=== PATIENT | female | born 1975 | race Caucasian/White ===

== ENCOUNTER 2018-11-01 20:25 | Emergency (ER) | payer SELFPAY ==
[2018-11-01 21:12] LABS: Basophils # (Auto) 0.1 K/mm3 (0.0-0.1); Basophils % (Auto) 1.1 % (0.0-1.8); Eosinophils # (Auto) 0.3 K/mm3 (0.0-0.4); Eosinophils % (Auto) 3.8 % (0.0-4.3); Hematocrit 40.2 % (30.3-42.9); Hemoglobin 13.4 gm/dl (10.1-14.3); Lymphocytes # (Auto) 2.8 K/mm3 (1.2-5.4); Lymphocytes % (Auto) 33.3 % (13.4-35.0); Mean Corpuscular HGB Conc 33 % (30-34); Mean Corpuscular Volume 92 fl (79-97); Monocytes # (Auto) 0.7 K/mm3 (0.0-0.8); Monocytes % (Auto) 7.9 % (0.0-7.3); Platelet Count 270 K/mm3 (140-440); Red Blood Count 4.39 M/mm3 (3.65-5.03); Red Cell Distribution Width 13.2 % (13.2-15.2)
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
[2018-11-01 21:43] LABS: BUN/Creatinine Ratio 15; Blood Urea Nitrogen 9 mg/dL (7-17); Calcium 8.9 mg/dL (8.4-10.2); Hemolysis Index 5
[2018-11-01 23:06] LABS: Bilirubin,Urine NEG (Negative); Blood,Urine SM (Negative); Color,Urine Yellow (Yellow); Protein,Urine <15 mg/dL mg/dL (Negative); Urobilinogen,Urine < 2.0 mg/dL (<2.0)
[2018-11-01 23:09] LABS: Amphetamine Screen,Urine PRESUMPTIVE NEGATIVE; Benzodiazepines Screen,Urine PRESUMPTIVE NEGATIVE; Cannabinoid Screen,Urine PRESUMPTIVE NEGATIVE; Cocaine Screen,Urine PRESUMPTIVE NEGATIVE; Methadone Screen,Urine PRESUMPTIVE NEGATIVE; Opiate Screen,Urine PRESUMPTIVE NEGATIVE
[2018-11-02] MEDS ORDERED: TYLENOL ONE (05:35)
[2018-11-02] MEDS ORDERED: TYLENOL PO ONE (05:35)
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
[2018-11-02] MEDS: GEODON PO SCH ×2 (12:34→21:45)
[2018-11-02] MEDS ORDERED: BENADRYL PO SCH (22:00)
[2018-11-03] MEDS: GEODON PO SCH (10:00)
--- NOTE | 2018-11-03 10:55 | Progress Note ---
Subjective - Reason for Consult Consult date: 11/03/18 Reason for consult: Psychiatry Follow-up - Chief Complaint Chief complaint: "I am okay" 43 y.o. female who presented to the ER for bizarre behavior. Today the patient is calm during the assessment. She was asked several questions about her actions prior to arrival to ER, she replied, 'I didn't do anything." She would not confirm or deny AH's during her crisis. She did state hearing voices intermit tently for several days before her arrival to the ER. She denies SI/HI's and VH's. She denies any side effects of her medication. " Mental Status Exam - Vital signs Last Vital Signs Temp 98.6 F 11/03/18 02:00 Pulse 70 11/03/18 02:00 Resp 18 11/03/18 02:00 BP 127/74 11/03/18 02:00 Pulse Ox 100 11/03/18 02:00 - Exam Narrative exam: MSE: Appearance: calm Behavior: regular eye contact Speech: regular rate and tone Mood: "okay" Affect: congruent to mood Thought Process: circumstantial Thought Content: denies SI/HI's and VH's, delusional, paranoia Motor Activity: sitting up in bed Cognition: A/O x3 Insight: poor Judgment: poor Assessment and Plan Impression: Unspecified Mood DO wiith psy features. Today the patient is calm during the assessment. UDS is negative. DDX: Schizophrenia, Schizoaffective DO Recommendation/Plan: Continue 1013 and Geodon 20 mg PO BID for psychosis and Benadryl 25 mg PO HS for sleep. Discussed possible metabolic side effects of Geodon with the patient. Dispo: The patient was accepted at [facility] today. Will staff with Dr Willis.
[2018-11-03 11:01] VITALS: BP 101/62
== END 2018-11-03 11:43 | disposition home or self-care (01) ==
LOC: EEVIPCON 20:25 → ED 20:25
DX: F23 Brief psychotic disorder (principal); F17.200 Nicotine dependence, unspecified, uncomplicated
CPT/HCPCS: 36415; 80048; 80307; 81001; 84703; 85025; 99285; G0480; 80320

== ENCOUNTER 2022-03-12 18:14 | Emergency (ER) | payer SELFPAY ==
[2022-03-12 22:57] VITALS: BP 151/99
--- NOTE | 2022-03-12 23:28 | Emergency Department Report ---
ED General Adult HPI - General Chief complaint: Pain General Stated complaint: BODYACHES Time Seen by Provider: 03/12/22 22:47 Source: EMS Mode of arrival: Stretcher Limitations: No Limitations - History of Present Illness Initial comments: Patient is a 46-year-old female with a history of anxiety and depression, bipolar disorder and schizophrenia who presents to the ED complaining of generalized body ache and headache stating that she is hungry she wants some real food. Patient states that she does not take any medications at the moment for her chronic bipolar disorder or psychosis. Patient states that she has not been on this medication for over 1 year. Patient denies dizziness, syncope, chest pain, traumatic injury or heavy lifting, fall, nausea and vomiting, abdominal pain, chest pain or shortness of breath, suicidal or homicidal ideations. MD Complaint: Generalized pain and headache, hungry want some real food -: Sudden, hour(s) (12) Location: head Radiation: non-radiation Severity scale (0 -10): 3 Quality: aching, dull Consistency: constant Improves with: none Worsens with: none Associated Symptoms: denies other symptoms, headaches. denies: confusion, chest pain, cough, diaphoresis, fever/chills, loss of appetite, malaise, nausea/vomiting, rash, seizure, shortness of breath, syncope, weakness, other Treatments Prior to Arrival: none - Related Data Home Medications Medication Instructions Recorded Confirmed Last Taken No Known Home Medications [No 11/01/18 11/01/18 Unknown Reported Home Medications] Allergies Allergy/AdvReac Type Severity Reaction Status Date / Time No Known Allergies Allergy Verified 11/01/18 20:50 ED Review of Systems ROS: Stated complaint: BODYACHES Other details as noted in HPI Constitutional: denies: chills, fever Eyes: denies: eye pain, eye discharge, vision change ENT: denies: ear pain, throat pain Respiratory: denies: cough, shortness of breath, wheezing Cardiovascular: denies: chest pain, palpitations Endocrine: no symptoms reported Gastrointestinal: denies: abdominal pain, nausea, diarrhea Genitourinary: denies: urgency, dysuria, discharge Musculoskeletal: denies: back pain, joint swelling, arthralgia Skin: denies: rash, lesions Neurological: headache. denies: weakness, paresthesias Psychiatric: anxiety. denies: depression, auditory hallucinations, visual hallucinations, homicidal thoughts, suicidal thoughts Hematological/Lymphatic: denies: easy bleeding, easy bruising ED Past Medical Hx - Past Medical History Hx Psychiatric Treatment: Yes (anxiety, bipolar d/o, depression, schizophrenia) - Surgical History Additional Surgical History: x1 - Social History Smoking Status: Current Some Day Smoker Substance Use Type: None - Medications Home Medications: Home Medications Medication Instructions Recorded Confirmed Last Taken Type No Known Home Medications [No 11/01/18 11/01/18 Unknown History Reported Home Medications] ED Physical Exam - General Limitations: No Limitations General appearance: alert, in no apparent distress - Head Head exam: Present: atraumatic, normocephalic, normal inspection - Eye Eye exam: Present: normal appearance, PERRL, EOMI Pupils: Present: normal accommodation - ENT ENT exam: Present: normal exam, normal orophraynx, mucous membranes moist, TM's normal bilaterally, normal external ear exam - Neck Neck exam: Present: normal inspection, full ROM. Absent: tenderness - Respiratory Respiratory exam: Present: normal lung sounds bilaterally. Absent: respiratory distress, wheezes, rales, rhonchi, chest wall tenderness, accessory muscle use, decreased breath sounds, prolonged expiratory - Cardiovascular Cardiovascular Exam: Present: regular rate, normal rhythm, normal heart sounds. Absent: systolic murmur, diastolic murmur, rubs, gallop - GI/Abdominal GI/Abdominal exam: Present: soft, normal bowel sounds. Absent: tenderness, guarding, rebound, hyperactive bowel sounds, hypoactive bowel sounds, organomegaly - Extremities Exam Extremities exam: Present: normal inspection, full ROM, normal capillary refill. Absent: tenderness - Back Exam Back exam: Present: normal inspection, full ROM. Absent: tenderness, CVA tenderness (L), muscle spasm, paraspinal tenderness, vertebral tenderness - Neurological Exam Neurological exam: Present: alert, oriented X3, CN II-XII intact, normal gait, reflexes normal - Psychiatric Psychiatric exam: Present: depressed, anxious, flat affect. Absent: agitated, manic, homicidal ideation, suicidal ideation - Skin Skin exam: Present: warm, dry, intact, normal color. Absent: rash ED Course Vital Signs 03/12/22 22:57 Pulse Rate 83 Respiratory 14 Rate Blood Pressure 151/99 [Left] O2 Sat by Pulse 100 Oximetry ED Medical Decision Making - Medical Decision Making This is a 46-year-old female with a history of anxiety and depression, bipolar disorder and schizophrenia who presents to the ED complaining of generalized body ache and headache stating that she is hungry she wants some real food. Patient states that she does not take any medications at the moment for her chronic bipolar disorder or psychosis. Patient states that she has not been on this medication for over 1 year. In the ED, patient is alert and oriented x3 and is not in any distress. Patient eating cookies and drinking juice during the physical exam. Patient was offered pain medication for headache but declined any medication stating that all she ever wants is real food not drinks. Patient is not suicidal or homicidal and is not having or experiencing any acute psychosis at this time. Patient was therefore discharged from the ED and advised to follow-up with her primary care physician in 7 to 10 days for reevaluation. Patient was advised to return to the ED immediately if her symptoms get worse. - Differential Diagnosis Tension headache; homelessness; chronic bipolar disorder; schizophrenia Critical care attestation.: If time is entered above; I have spent that time in minutes in the direct care of this critically ill patient, excluding procedure time. ED Disposition Clinical Impression: Chronic bipolar disorder, Homelessness unspecified Tension-type headache Qualifiers: Headache chronicity pattern: unspecified pattern Intractability: not intractable Qualified Code(s): G44.209 - Tension-type headache, unspecified, not intractable Disposition: 01 HOME / SELF CARE / HOMELESS Is pt being admited?: No Does the pt Need Aspirin: No Condition: Stable Instructions: Managing Bipolar Disorder, General Headache Without Cause Additional Instructions: Follow-up with your psychiatrist or primary care physician as needed. Take [id number] pain medications like Tylenol or ibuprofen as needed for headache. Return to the ED immediately if symptoms get worse. Referrals: [facility] [Provider Group] - as needed Time of Disposition: 23:37 Print Language: TURKISH
== END 2022-03-12 23:00 | disposition home or self-care (01) ==
LOC: ED 18:14
DX: F31.9 Bipolar disorder, unspecified (principal); G43.909 Migraine, unspecified, not intractable, without status migrainosus; Z59.00 Homelessness unspecified; Z79.899 Other long term (current) drug therapy; F17.200 Nicotine dependence, unspecified, uncomplicated
CPT/HCPCS: 99282